=== PATIENT | male | born 1960 | race Caucasian/White ===

== ENCOUNTER 2017-11-04 05:17 | Day surgery (SDC) | payer BC, OTHER ==
[2017-10-31 11:47] LABS: BASOPHILS % (AUTO) 0.7 % (0-1); EOSINOPHILS # (AUTO) 0.2 X10'3 (0-0.9); EOSINOPHILS % (AUTO) 3.5 % (0-6); HEMATOCRIT 41.3 % (42.0-52.0); HEMOGLOBIN 14.4 g/dl (14.0-17.9); LYMPHOCYTES # (AUTO) 1.6 X10'3 (1.1-4.8); LYMPHOCYTES % (AUTO) 29.6 % (21-51); MEAN CORPUSCULAR HGB CONC 34.8 % (33.0-36.5); MEAN PLATELET VOLUME 7.5 FL (7.4-10.4); MONOCYTES # (AUTO) 0.4 X10'3 (0-0.9); MONOCYTES % (AUTO) 7.1 % (2-12); NEUTROPHILS # (AUTO) 3.2 X10'3 (1.8-7.7); NEUTROPHILS % (AUTO) 59.1 % (42-75); PLATELET COUNT 192 X10'3 (140-440); RED BLOOD COUNT 4.64 X10'6 (4.70-6.10); RED CELL DISTRIBUTION WIDTH 13.5 % (11.5-14.5); WHITE BLOOD COUNT 5.4 X10'3 (4.5-11.0)
[2017-10-31 11:55] LABS: PARTIAL THROMBOPLASTIN TIME 26 SECONDS (22-32); PROTHROMBIN TIME 10.1 SECONDS (9.0-12.0)
[2017-10-31 11:57] LABS: ALBUMIN 4.2 G/DL (3.4-5.0); ANION GAP 12 (8-16); BLOOD UREA NITROGEN 28 MG/DL (7-18); BUN/CREATININE RATIO 22.6 (5.4-32.0); CHLORIDE 110 MMOL/L (99-107); CREATININE 1.24 MG/DL (0.60-1.10); GLUCOSE 129 MG/DL (70-104); POTASSIUM 3.9 MMOL/L (3.5-5.1); SODIUM 142 MMOL/L (135-145); TOTAL CARBON DIOXIDE 20.2 MMOL/L (24-32); eGFR 60 ML/MIN
[~2017-11-04] VITALS: Ht 182.9 cm; Wt 96.2 kg
[2017-11-04] VITALS (12 sets, daily range): BP systolic 104–123; BP diastolic 60–70
[2017-11-04] MEDS ORDERED: normal saline 1000ml 1,000 ML IV SCH (05:35)
[2017-11-04] MEDS ORDERED: LORazepam 0.5 MG tablet PO PRN (05:35)
[2017-11-04] MEDS ORDERED: diphenhydrAMINE 25mg capsule PO PRN (05:35)
[2017-11-04] MEDS ORDERED: LIDOcaine/PRILOcaine 5gm cream TP PRN (05:35)
[2017-11-04] MEDS ORDERED: LIDOcaine 1%/PF (10mg/ml) 5ml vial ONE ×2 (05:59)
[2017-11-04] MEDS ORDERED: nitroGLYCERIN-Tridil 50MG/D5W 250 ML IV ONE (05:59)
[2017-11-04] MEDS ORDERED: fentaNYL/PF 50MCG/1 ML 2ML syringe ONE (05:59)
[2017-11-04] MEDS ORDERED: midazolam 2 mg/2 ml injection ONE (05:59)
[2017-11-04] MEDS ORDERED: verapamil 2.5 mg/ml inj IV ONE (05:59)
[2017-11-04] MEDS ORDERED: heparin 1,000unit/ml 10ml vial 10 ML ONE (06:00)
[2017-11-04] MEDS ORDERED: iohexol 350MG/ML 100ml bottle IV ONE (06:00)
[2017-11-04] MEDS ORDERED: OMEP20TA5 PO (06:22)
[2017-11-04] MEDS ORDERED: CELE200C PO (06:22)
[2017-11-04] MEDS ORDERED: FENO130C8 PO (06:22)
[2017-11-04] MEDS ORDERED: EZET1TAB35 PO (06:22)
[2017-11-04] MEDS ORDERED: ASPI-611 PO (06:22)
[2017-11-04] MEDS ORDERED: HYDR-565 PO (06:22)
[2017-11-04] MEDS ORDERED: ACET250T3 PO (06:22)
[2017-11-04] MEDS ORDERED: ticagrelor 90mg tablet ONE (07:02)
[2017-11-04] MEDS ORDERED: ondansetron/PF 4mg/2ml inj IV PRN (07:35)
[2017-11-04] MEDS ORDERED: proCHLORperazine 10 MG/2 ml inj IV PRN (07:35)
[2017-11-04] MEDS ORDERED: HYDROcodone/acetaminophen 10/325mg tab PO PRN (07:35)
[2017-11-04] MEDS ORDERED: OXAZEpam 15mg capsule PO PRN (07:35)
[2017-11-04] MEDS ORDERED: HYDROcodone/acetaminophen 5mg/325mg tablet PO PRN (07:35)
== END 2017-11-04 09:45 | disposition home or self-care (01) ==
LOC: SSTAY O 05:17
PROVIDERS: ATTEND Internal Medicine Interventional Cardiology
DX: I25.118 Atherosclerotic heart disease of native coronary artery with other forms of angina pectoris (principal); Z79.01 Long term (current) use of anticoagulants; Z79.899 Other long term (current) drug therapy; Z79.82 Long term (current) use of aspirin
CPT/HCPCS: 36415; 80048; 85025; 85610; 85730; 93458; 99152; 99153; A6257; A6402; A6449; C1725; C1750; C1769; C1874; C9600; J1644; J2001; J2250; J3010; J3490; J7030; Q0163; Q9967; A4620; A6258

== ENCOUNTER 2023-09-17 08:56 | Inpatient (IN) | payer OTHER ==
[~2023-09-17] VITALS: Ht 180.3 cm; Wt 88.6 kg
[~2023-09-17 08:56] MED LIST: ACET250T3 PO; ASPI-611 PO; CELE200C PO; EZET1TAB35 PO; FENO130C14 PO; HYDR-4353 PO; OMEP20TA43 PO
[2023-09-17] MEDS ORDERED: HYDROcodone/acetaminophen 5mg/325mg tablet PO ONE (09:20)
[2023-09-17] MEDS ORDERED: ketorolac trometh. 30mg/ml inj. IV ONE (09:20)
[2023-09-17 10:48] LABS: EOSINOPHILS # (AUTO) 0.2 X10'3 (0-0.9); MEAN CORPUSCULAR HEMOGLOBIN 31.2 PG (27.0-31.0); MEAN PLATELET VOLUME 7.9 FL (7.4-10.4); MONOCYTES # (AUTO) 1.1 X10'3 (0-0.9)
[2023-09-17 10:49] LABS: BASOPHILS % (AUTO) 0.4 % (0-1); EOSINOPHILS % (AUTO) 1.7 % (0-6); HEMATOCRIT 55.5 % (42.0-52.0); LYMPHOCYTES # (AUTO) 1.4 X10'3 (1.1-4.8); LYMPHOCYTES % (AUTO) 13.6 % (21-51); MEAN CORPUSCULAR HGB CONC 33.3 g/dL (33.0-36.5); MEAN CORPUSCULAR VOLUME 93.7 FL (78-98); MONOCYTES % (AUTO) 10.8 % (2-12); NEUTROPHILS # (AUTO) 7.6 X10'3 (1.8-7.7); NEUTROPHILS % (AUTO) 73.5 % (42-75); PLATELET COUNT 141 X10'3 (140-440); RED BLOOD COUNT 5.92 X10'6 (4.70-6.10); RED CELL DISTRIBUTION WIDTH 13.9 % (11.5-14.5); WHITE BLOOD COUNT 10.4 X10'3 (4.5-11.0)
[2023-09-17 10:51] LABS: BILIRUBIN,URINE MODERATE (Neg); CLARITY,URINE CLEAR (Clear); COLOR,URINE YELLOW (Yellow); GLUCOSE, URINE NEGATIVE (Neg); KETONES,URINE NEGATIVE (Neg); LEUKOCYTE ESTERASE ,URINE NEGATIVE (Neg); NITRITES, URINE NEGATIVE (Neg); OCCULT BLOOD,URINE TRACE-INTACT (Neg); PH,URINE 5.5 (4.8-8.0); PROTEIN,URINE TRACE mg/dl (Neg)
[2023-09-17 10:51] LABS: ANION GAP 17 (8-16); BLOOD UREA NITROGEN 25 MG/DL (7-18); BUN/CREATININE RATIO 10.1 (10.0-20.0); CALCIUM 9.5 MG/DL (8.5-10.1); CHLORIDE 102 MMOL/L (99-107); CREATININE 2.48 MG/DL (0.60-1.10); GLUCOSE 106 MG/DL (70-104); POTASSIUM 4.1 MMOL/L (3.5-5.1); SODIUM 135 MMOL/L (135-145); TOTAL CARBON DIOXIDE 15.7 MMOL/L (24-32); eCRCL 33 ML/MIN; eGFR 27 ML/MIN
[2023-09-17 10:54] LABS: UA COLLECTION TYPE NON-SPECIFIED
[2023-09-17 10:57] LABS: HEMOGLOBIN 18.5 g/dl (14.0-17.9)
[2023-09-17 11:00] LABS: MUCUS STRANDS MANY /LPF (Neg); SQUAMOUS EPITHELIAL CELL,UR FEW /LPF (FEW)
[2023-09-17] MEDS ORDERED: normal saline 1000ml 1,000 ML IV ONE (11:00)
[2023-09-17 11:01] LABS: WBC,URINE 0-4 /HPF (0-4)
[2023-09-17 11:02] LABS: BACTERIA,URINE FEW /HPF (Neg)
[2023-09-17] MEDS ORDERED: normal saline 1000ML IV soln IVB ONE (13:25)
[2023-09-17] MEDS ORDERED: morphine 4 MG/ML inj SYRINge IV ONE (13:30)
[2023-09-17] MEDS ORDERED: ondansetron/PF 4mg/2ml inj IV ONE (13:30)
[2023-09-17] MEDS ORDERED: FENO134C21 PO (13:57)
[2023-09-17] MEDS ORDERED: [UNRECOGNIZED DRUG - CODE] PO (13:57)
[2023-09-17] MEDS ORDERED: HYDR-3964 PO (13:57)
[2023-09-17] MEDS ORDERED: TRAZ-251 PO (13:57)
[2023-09-17] MEDS ORDERED: ondansetron/PF 4mg/2ml inj IV PRN (14:20)
[2023-09-17] MEDS ORDERED: magnesium 4gm in 100ml NS 100 ML IV PRN (14:20)
[2023-09-17] MEDS ORDERED: magnesium hydroxide 30ml (MOM) UD suspension PO PRN (14:20)
[2023-09-17] MEDS ORDERED: acetaminophen 325mg tablet PO PRN (14:20)
[2023-09-17] MEDS ORDERED: mag hydrox/Alum hydrox/simeth 30ml oral suspension PO PRN (14:20)
[2023-09-17] MEDS ORDERED: magnesium 2GM in 50ml NS 50 ML IV PRN (14:20)
[2023-09-17] MEDS ORDERED: potassium Cl 20 mEq SR tablet PO PRN ×2 (14:20)
[2023-09-17] MEDS ORDERED: potassium Cl 40MEQ/1/2NS 520ml 520 ML IV PRN (14:20)
[2023-09-17] MEDS ORDERED: CefTRIAXone/D5W-Rocephin 1gm 50 ML IV ONE (14:35)
[2023-09-17] MEDS: sodium bicarbonate (8.4%) inj. 100 MEQ in dextrose 5%-water 1,000 ML IV SCH (16:29)
[2023-09-17] MEDS: HYDROmorphone 1 mg/ml syringe IV PRN ×2 (18:33→22:34)
[2023-09-17] MEDS: K and/or MAG REPLACEMENT MC SCH (20:00)
[2023-09-17] MEDS: heparin, porcine 5000 units/ml vial SQ SCH (20:57)
[2023-09-17] MEDS: docusate sod 100mg capsule PO SCH (20:57)
[2023-09-17] MEDS: tamsulosin 0.4mg capsule PO SCH (20:57)
[2023-09-18] MEDS: sodium bicarbonate (8.4%) inj. 100 MEQ in dextrose 5%-water 1,000 ML IV SCH ×3 (01:20→14:19)
[2023-09-18] MEDS: HYDROmorphone 1 mg/ml syringe IV PRN ×5 (02:43→20:10)
[2023-09-18] MEDS: heparin, porcine 5000 units/ml vial SQ SCH ×2 (08:00→20:09)
[2023-09-18] MEDS: docusate sod 100mg capsule PO SCH ×2 (08:00→19:38)
[2023-09-18] MEDS ORDERED: CefTRIAXone/D5W-Rocephin 1gm 50 ML IV SCH (08:00)
[2023-09-18] MEDS: K and/or MAG REPLACEMENT MC SCH ×2 (08:00→19:18)
[2023-09-18 08:21] LABS: BASOPHILS % (AUTO) 0.5 % (0-1); EOSINOPHILS # (AUTO) 0.2 X10'3 (0-0.9); EOSINOPHILS % (AUTO) 2.7 % (0-6); HEMATOCRIT 48.8 % (42.0-52.0); HEMOGLOBIN 16.4 g/dl (14.0-17.9); LYMPHOCYTES # (AUTO) 1.1 X10'3 (1.1-4.8); LYMPHOCYTES % (AUTO) 13.6 % (21-51); MEAN CORPUSCULAR HEMOGLOBIN 31.4 PG (27.0-31.0); MEAN CORPUSCULAR HGB CONC 33.6 g/dL (33.0-36.5); MEAN CORPUSCULAR VOLUME 93.6 FL (78-98); MEAN PLATELET VOLUME 7.7 FL (7.4-10.4); MONOCYTES % (AUTO) 11.9 % (2-12); NEUTROPHILS # (AUTO) 5.9 X10'3 (1.8-7.7); NEUTROPHILS % (AUTO) 71.3 % (42-75); PLATELET COUNT 116 X10'3 (140-440); RED BLOOD COUNT 5.22 X10'6 (4.70-6.10); RED CELL DISTRIBUTION WIDTH 13.6 % (11.5-14.5); WHITE BLOOD COUNT 8.2 X10'3 (4.5-11.0)
[2023-09-18 08:35] LABS: ALANINE AMINOTRANSFERASE 39 U/L (12-78); ALBUMIN 3.3 G/DL (3.4-5.0); ALBUMIN/GLOBULIN RATIO 0.8 (1.1-1.5); ALKALINE PHOSPHATASE 67 IU/L (46-116); ANION GAP 8 (8-16); ASPARTATE AMINO TRANSFERASE 21 U/L (10-37); BILIRUBIN,TOTAL 0.7 MG/DL (0.1-1.0); BLOOD UREA NITROGEN 21 MG/DL (7-18); BUN/CREATININE RATIO 9.5 (10.0-20.0); CHLORIDE 104 MMOL/L (99-107); CREATININE 2.22 MG/DL (0.60-1.10); GLUCOSE 103 MG/DL (70-104); MAGNESIUM 1.9 MG/DL (1.5-2.4); POTASSIUM 3.9 MMOL/L (3.5-5.1); SODIUM 135 MMOL/L (135-145); TOTAL PROTEIN 7.4 G/DL (6.4-8.2); eCRCL 37 ML/MIN; eGFR 30 ML/MIN
[2023-09-18] MEDS: fenofibrate 145mg tablet PO SCH (08:40)
[2023-09-18] MEDS ORDERED: acetaminophen 325mg tablet PO PRN (08:40)
[2023-09-18] MEDS: aspirin 81mg, enteric-coated 1 TAB TABLET.DR PO SCH (08:41)
[2023-09-18] MEDS: pantoprazole 40mg Tablet.DR PO SCH (08:41)
[2023-09-18] MEDS: atorvastatin 10mg tablet PO SCH (08:41)
[2023-09-18] MEDS: HYDROmorphone inj. 0.5 MG/0.5 ML DISP.SYRIN IV PRN ×3 (09:02→18:19)
[2023-09-18] MEDS: normal saline 1000ml 1,000 ML IV SCH (19:42)
[2023-09-18] MEDS: tamsulosin 0.4mg capsule PO SCH (20:07)
[2023-09-19] VITALS (16 sets, daily range): BP systolic 122–144; BP diastolic 63–85; PULSE 70–84; RESP 13–20; TEMP 97.1–98.8; O2SAT 91–100
[2023-09-19] MEDS: HYDROmorphone 1 mg/ml syringe IV PRN ×2 (00:12→04:05)
[2023-09-19] MEDS: tamsulosin 0.4mg capsule PO SCH (01:49)
[2023-09-19] MEDS: normal saline 1000ml 1,000 ML IV SCH (06:01)
[2023-09-19 06:22] LABS: BASOPHILS # (AUTO) 0.1 X10'3 (0-0.2); BASOPHILS % (AUTO) 0.8 % (0-1); EOSINOPHILS # (AUTO) 0.2 X10'3 (0-0.9); HEMATOCRIT 49.4 % (42.0-52.0); HEMOGLOBIN 16.9 g/dl (14.0-17.9); LYMPHOCYTES # (AUTO) 1.3 X10'3 (1.1-4.8); LYMPHOCYTES % (AUTO) 18.7 % (21-51); MEAN CORPUSCULAR HEMOGLOBIN 31.6 PG (27.0-31.0); MEAN CORPUSCULAR HGB CONC 34.3 g/dL (33.0-36.5); MEAN CORPUSCULAR VOLUME 92.2 FL (78-98); MEAN PLATELET VOLUME 7.7 FL (7.4-10.4); MONOCYTES # (AUTO) 0.7 X10'3 (0-0.9); MONOCYTES % (AUTO) 10.1 % (2-12); NEUTROPHILS # (AUTO) 4.8 X10'3 (1.8-7.7); NEUTROPHILS % (AUTO) 67.4 % (42-75); PLATELET COUNT 146 X10'3 (140-440); RED BLOOD COUNT 5.35 X10'6 (4.70-6.10); RED CELL DISTRIBUTION WIDTH 13.6 % (11.5-14.5); WHITE BLOOD COUNT 7.1 X10'3 (4.5-11.0)
[2023-09-19 06:42] LABS: ALANINE AMINOTRANSFERASE 48 U/L (12-78); ALBUMIN 3.3 G/DL (3.4-5.0); ALBUMIN/GLOBULIN RATIO 0.7 (1.1-1.5); ALKALINE PHOSPHATASE 73 IU/L (46-116); ANION GAP 12 (8-16); ASPARTATE AMINO TRANSFERASE 27 U/L (10-37); BILIRUBIN,TOTAL 0.6 MG/DL (0.1-1.0); BLOOD UREA NITROGEN 21 MG/DL (7-18); BUN/CREATININE RATIO 12.4 (10.0-20.0); CALCIUM 9.2 MG/DL (8.5-10.1); CHLORIDE 103 MMOL/L (99-107); CREATININE 1.69 MG/DL (0.60-1.10); GLUCOSE 108 MG/DL (70-104); POTASSIUM 3.7 MMOL/L (3.5-5.1); SODIUM 138 MMOL/L (135-145); TOTAL CARBON DIOXIDE 22.8 MMOL/L (24-32); TOTAL PROTEIN 7.8 G/DL (6.4-8.2); eCRCL 48 ML/MIN; eGFR 41 ML/MIN
[2023-09-19] MEDS ORDERED: iohexol 300 MG/1 ML 50ml polymer ONE (06:57)
[2023-09-19] MEDS ORDERED: sevoflurane 250ml liquid IH ONE (07:16)
[2023-09-19] MEDS ORDERED: fentaNYL/PF 50MCG/1 ML 2ML syringe ONE (07:23)
[2023-09-19] MEDS ORDERED: iohexol 300 MG/1 ML 50ml polymer ICATH ONE (07:44)
[2023-09-19] MEDS ORDERED: LIDOcaine 2% (20mg/ml) 5ml vial ONE (07:45)
[2023-09-19] MEDS ORDERED: midazolam 1 mg/ML 2ml injection ONE (07:45)
[2023-09-19] MEDS ORDERED: propofol inj 20 ML IV ONE (07:45)
[2023-09-19] MEDS ORDERED: dexamethasone sod phosphate 4mg/ml inj. ONE (07:45)
[2023-09-19] MEDS ORDERED: ondansetron/PF 4mg/2ml inj ONE (07:45)
[2023-09-19] MEDS ORDERED: proCHLORperazine 10 MG/2 ml inj IV PRN (08:00)
[2023-09-19] MEDS ORDERED: acetaminophen 1,000mg/100ml IV 100 ML IV ONE (08:00)
[2023-09-19] MEDS ORDERED: hydrALAZINE 20mg/ml inj. IV PRN (08:00)
[2023-09-19] MEDS ORDERED: ringers solution, lacted 1,000 ML IV SCH (08:00)
[2023-09-19] MEDS ORDERED: meperidine/PF 25mg/ml syringe IV PRN ×2 (08:00)
[2023-09-19] MEDS: docusate sod 100mg capsule PO SCH (08:00)
[2023-09-19] MEDS: fenofibrate 145mg tablet PO SCH (08:00)
[2023-09-19] MEDS ORDERED: labetalol 20mg/4ml (5mg/ml) syringe IV PRN (08:00)
[2023-09-19] MEDS: atorvastatin 10mg tablet PO SCH (08:00)
[2023-09-19] MEDS ORDERED: morphine 4 MG/ML inj SYRINge IV PRN (08:00)
[2023-09-19] MEDS: heparin, porcine 5000 units/ml vial SQ SCH (08:00)
[2023-09-19] MEDS: pantoprazole 40mg Tablet.DR PO SCH (08:00)
[2023-09-19] MEDS ORDERED: ondansetron/PF 4mg/2ml inj IV PRN (08:00)
[2023-09-19] MEDS ORDERED: morphine 2 MG/ML inj. syringe IV PRN (08:00)
[2023-09-19] MEDS: aspirin 81mg, enteric-coated 1 TAB TABLET.DR PO SCH (08:00)
[2023-09-19] MEDS: meperidine/PF 25mg/ml syringe IV PRN ×2 (08:29→08:43)
[2023-09-19] MEDS ORDERED: PHEN-716 PO (11:30)
[2023-09-19] MEDS ORDERED: CEPH-585 PO (11:30)
== END 2023-09-19 12:15 | disposition home or self-care (01) | DRG 660 ==
LOC: ER 08:56 → ED HOLD 14:33 → EDBEDREQ 09-18 21:36 → ED HOLD 09-18 22:07 → ORTHO 4S 09-19 00:10
PROVIDERS: ADMIT Family Medicine; ATTEND Family Medicine
PROC: BT141ZZ Fluoroscopy of Kidneys, Ureters and Bladder using Low Osmolar Contrast (ICD-10-PCS; 2023-09-19)
PROC: 0T788DZ Dilation of Bilateral Ureters with Intraluminal Device, Via Natural or Artificial Opening Endoscopic (ICD-10-PCS; principal; 2023-09-19 07:16)
DX: N13.2 Hydronephrosis with renal and ureteral calculous obstruction (principal); E87.20 Acidosis, unspecified; N13.8 Other obstructive and reflux uropathy; E86.0 Dehydration; G89.29 Other chronic pain; M54.9 Dorsalgia, unspecified; E78.5 Hyperlipidemia, unspecified; M85.80 Other specified disorders of bone density and structure, unspecified site; N40.1 Benign prostatic hyperplasia with lower urinary tract symptoms; I25.10 Atherosclerotic heart disease of native coronary artery without angina pectoris; N17.9 Acute kidney failure, unspecified; Z79.82 Long term (current) use of aspirin; Z79.899 Other long term (current) drug therapy; Z87.442 Personal history of urinary calculi
CPT/HCPCS: 99285; Z7506; 36415; 71045; 74176; 74420; 76000; 80048; 80053; 81001; 83735; 85025; 93005; A4618; A6258; C1758; C1769; C2617; G0378; J0131; J0696; J1100; J1170; J1644; J1885; J2175; J2250; J2270; J2405; J2704; J3010; J3490; J7030; J7070; Q9967

== ENCOUNTER 2024-01-15 08:21 | Inpatient (IN) | payer OTHER ==
[~2024-01-15] VITALS: Ht 180.3 cm; Wt 96.2 kg
[2024-01-15] MEDS: dextrose 5%-1/2 normal saline 1,000 ML IV SCH (00:49)
[~2024-01-15 08:21] MED LIST changes: -ACET250T3 PO; -CELE200C PO; +CEPH-585 PO; -EZET1TAB35 PO; -FENO130C14 PO; +FENO134C21 PO; +HYDR-3964 PO; -HYDR-4353 PO; +PHEN-716 PO; +TRAZ-251 PO; +[UNRECOGNIZED DRUG - CODE] PO
[2024-01-15] MEDS: HYDROmorphone inj. 0.5 MG/0.5 ML DISP.SYRIN IV ONE (09:33)
[2024-01-15] MEDS: ondansetron/PF 4mg/2ml inj IM ONE (09:34)
[2024-01-15 09:41] LABS: BASOPHILS % (AUTO) 0.4 % (0-1); EOSINOPHILS # (AUTO) 0.1 X10'3 (0-0.9); EOSINOPHILS % (AUTO) 1.4 % (0-6); HEMATOCRIT 51.8 % (42.0-52.0); HEMOGLOBIN 17.6 g/dl (14.0-17.9); LYMPHOCYTES # (AUTO) 1.2 X10'3 (1.1-4.8); LYMPHOCYTES % (AUTO) 11.7 % (21-51); MEAN CORPUSCULAR HEMOGLOBIN 32.4 PG (27.0-31.0); MEAN CORPUSCULAR HGB CONC 34.1 g/dL (33.0-36.5); MEAN CORPUSCULAR VOLUME 95.1 FL (78-98); MEAN PLATELET VOLUME 7.4 FL (7.4-10.4); MONOCYTES # (AUTO) 0.7 X10'3 (0-0.9); MONOCYTES % (AUTO) 6.9 % (2-12); NEUTROPHILS # (AUTO) 7.8 X10'3 (1.8-7.7); NEUTROPHILS % (AUTO) 79.6 % (42-75); PLATELET COUNT 137 X10'3 (140-440); RED BLOOD COUNT 5.45 X10'6 (4.70-6.10); RED CELL DISTRIBUTION WIDTH 13.9 % (11.5-14.5); WHITE BLOOD COUNT 9.9 X10'3 (4.5-11.0)
[2024-01-15] MEDS: ondansetron/PF 4mg/2ml inj IV ONE (09:45)
[2024-01-15] MEDS: HYDROmorphone inj. 0.5 MG/0.5 ML DISP.SYRIN IV PRN (09:52)
[2024-01-15 10:16] LABS: ALANINE AMINOTRANSFERASE 86 U/L (12-78); ALBUMIN 3.7 G/DL (3.4-5.0); ALKALINE PHOSPHATASE 78 IU/L (46-116); ANION GAP 10 (8-16); ASPARTATE AMINO TRANSFERASE 45 U/L (10-37); BILIRUBIN,TOTAL 0.5 MG/DL (0.1-1.0); BLOOD UREA NITROGEN 15 MG/DL (7-18); BUN/CREATININE RATIO 12.5 (10.0-20.0); CALCIUM 9.2 MG/DL (8.5-10.1); CHLORIDE 103 MMOL/L (99-107); GLUCOSE 121 MG/DL (70-104); SODIUM 135 MMOL/L (135-145); TOTAL CARBON DIOXIDE 22.4 MMOL/L (24-32); TOTAL PROTEIN 7.4 G/DL (6.4-8.2); eCRCL 67 ML/MIN; eGFR 61 ML/MIN
[2024-01-15 10:25] LABS: LIPASE > 375 U/L (16-77)
[2024-01-15 11:30] LABS: BILIRUBIN,URINE NEGATIVE (Neg); CLARITY,URINE SLIGHTLY CLOUDY (Clear); COLOR,URINE YELLOW (Yellow); GLUCOSE, URINE NEGATIVE (Neg); KETONES,URINE NEGATIVE (Neg); LEUKOCYTE ESTERASE ,URINE NEGATIVE (Neg); NITRITES, URINE NEGATIVE (Neg); OCCULT BLOOD,URINE NEGATIVE (Neg); PROTEIN,URINE NEGATIVE (Neg); UROBILINOGEN,URINE 0.2 E.U/dL (0.2-1.0)
[2024-01-15 11:48] LABS: UA COLLECTION TYPE CLN CATCH MIDSTREAM
[2024-01-15 11:50] LABS: BACTERIA,URINE NONE SEEN /HPF (Neg); RBC,URINE NONE SEEN /HPF (0-2); SQUAMOUS EPITHELIAL CELL,UR NONE SEEN /LPF (FEW); WBC,URINE NONE SEEN /HPF (0-4)
[2024-01-15] MEDS ORDERED: acetaminophen 325mg tablet PO PRN (12:30)
[2024-01-15] MEDS ORDERED: magnesium 4gm in 100ml NS 100 ML IV PRN (12:30)
[2024-01-15] MEDS ORDERED: magnesium Cl slow-release 64mg tablet PO PRN (12:30)
[2024-01-15] MEDS ORDERED: HYDROmorphone/PF 0.2 MG/ML SYRINGE IV PRN ×2 (12:30→13:25)
[2024-01-15] MEDS ORDERED: HYDROmorphone inj. 0.5 MG/0.5 ML DISP.SYRIN IV PRN (12:30)
[2024-01-15] MEDS ORDERED: diphenhydrAMINE 25mg capsule PO PRN (12:30)
[2024-01-15] MEDS ORDERED: potassium Cl 40MEQ/1/2NS 520ml 520 ML IV PRN (12:30)
[2024-01-15] MEDS ORDERED: potassium Cl 20 mEq SR tablet PO PRN ×2 (12:30)
[2024-01-15] MEDS ORDERED: magnesium 2GM in 50ml NS 50 ML IV PRN (12:30)
[2024-01-15] MEDS ORDERED: mag hydrox/Alum hydrox/simeth 30ml oral suspension PO PRN (12:30)
[2024-01-15] MEDS ORDERED: magnesium hydroxide 30ml (MOM) UD suspension PO PRN (12:30)
[2024-01-15] MEDS: HYDROmorphone 1 mg/ml syringe IV ONE (13:13)
[2024-01-15] MEDS: ondansetron/PF 4mg/2ml inj IV PRN (13:14)
[2024-01-15 14:07] LABS: TRIGLYCERIDES 261 MG/DL (20-135)
[2024-01-15] MEDS: morphine 4 MG/ML inj SYRINge IV PRN (16:18)
[2024-01-15 17:51] VITALS: BP 152/100; PULSE 114; RESP 20; TEMP 98.7; O2SAT 93
[2024-01-15] MEDS: LIDOcaine 5% patch TP ONE (18:02)
[2024-01-15] MEDS: HYDROmorphone 1 mg/ml syringe IV PRN (18:05)
[2024-01-15 19:00] VITALS: RESP 18; O2SAT 93
[2024-01-15] MEDS: K and/or MAG REPLACEMENT MC SCH (20:00)
[2024-01-15] MEDS: docusate sod 100mg capsule PO SCH (20:40)
[2024-01-15] MEDS: HYDROcodone/acetaminophen 10/325mg tab PO PRN (20:41)
[2024-01-15 22:00] VITALS: BP 150/65; PULSE 75; RESP 14; TEMP 98.8; O2SAT 94
[2024-01-15] MEDS: traZODone 50mg tablet PO PRN (22:47)
[2024-01-16 05:59] LABS: BASOPHILS % (AUTO) 0.1 % (0-1); EOSINOPHILS % (AUTO) 0 % (0-6); HEMATOCRIT 56.1 % (42.0-52.0); LYMPHOCYTES # (AUTO) 0.7 X10'3 (1.1-4.8); LYMPHOCYTES % (AUTO) 3.5 % (21-51); MEAN CORPUSCULAR HEMOGLOBIN 32.4 PG (27.0-31.0); MEAN CORPUSCULAR HGB CONC 33.8 g/dL (33.0-36.5); MEAN CORPUSCULAR VOLUME 95.7 FL (78-98); MEAN PLATELET VOLUME 7.6 FL (7.4-10.4); MONOCYTES % (AUTO) 5.2 % (2-12); NEUTROPHILS % (AUTO) 91.2 % (42-75); PLATELET COUNT 157 X10'3 (140-440); RED BLOOD COUNT 5.86 X10'6 (4.70-6.10); WHITE BLOOD COUNT 19.7 X10'3 (4.5-11.0)
[2024-01-16 06:00] VITALS: BP 121/74; PULSE 80; RESP 16; TEMP 98.6; O2SAT 96
[2024-01-16 06:27] LABS: ALANINE AMINOTRANSFERASE 60 U/L (12-78); ALBUMIN 3.3 G/DL (3.4-5.0); ALBUMIN/GLOBULIN RATIO 0.8 (1.1-1.5); ALKALINE PHOSPHATASE 73 IU/L (46-116); ANION GAP 11 (8-16); ASPARTATE AMINO TRANSFERASE 32 U/L (10-37); BILIRUBIN,TOTAL 1.3 MG/DL (0.1-1.0); BLOOD UREA NITROGEN 16 MG/DL (7-18); BUN/CREATININE RATIO 12.7 (10.0-20.0); CALCIUM 9.1 MG/DL (8.5-10.1); CHLORIDE 98 MMOL/L (99-107); CREATININE 1.26 MG/DL (0.60-1.10); GLUCOSE 179 MG/DL (70-104); POTASSIUM 4.2 MMOL/L (3.5-5.1); SODIUM 132 MMOL/L (135-145); TOTAL CARBON DIOXIDE 23.2 MMOL/L (24-32); TOTAL PROTEIN 7.6 G/DL (6.4-8.2); eCRCL 64 ML/MIN; eGFR 58 ML/MIN
[2024-01-16 07:02] LABS: LIPASE > 375 U/L (16-77)
[2024-01-16] MEDS: FENOFIBRATE MICRONIZED 134 MG PO SCH (08:00)
[2024-01-16] MEDS: enoxaparin 40mg/0.4ml syringe SUBCUT SCH (08:59)
[2024-01-16 09:00] VITALS: RESP 16
[2024-01-16] MEDS: morphine 2 MG/ML inj. syringe IV PRN (09:00)
[2024-01-16] MEDS: ringers solution, lacted 1,000 ML IV SCH (09:09)
[2024-01-16 10:00] VITALS: BP 154/91; PULSE 114; RESP 20; TEMP 99.8; O2SAT 98
[2024-01-16] MEDS ORDERED: naloxone 0.4 mg/ml inj IV PRN (10:30)
[2024-01-16] MEDS: HYDROmorph/NS 0.2 mg/ml PCA 100 ML IV SCH (11:00)
[2024-01-16] MEDS: normal saline 1000ml 1,000 ML IV ONE (11:03)
[2024-01-16] MEDS: LIDOcaine 5% patch TP SCH (11:38)
[2024-01-16 14:25] LABS: BASOPHILS % (AUTO) 0.3 % (0-1); EOSINOPHILS % (AUTO) 0.1 % (0-6); HEMATOCRIT 52.1 % (42.0-52.0); LYMPHOCYTES # (AUTO) 0.6 X10'3 (1.1-4.8); LYMPHOCYTES % (AUTO) 3.1 % (21-51); MEAN CORPUSCULAR HEMOGLOBIN 32.5 PG (27.0-31.0); MEAN CORPUSCULAR HGB CONC 34.6 g/dL (33.0-36.5); MEAN CORPUSCULAR VOLUME 94.1 FL (78-98); MEAN PLATELET VOLUME 7.3 FL (7.4-10.4); NEUTROPHILS # (AUTO) 17.6 X10'3 (1.8-7.7); NEUTROPHILS % (AUTO) 91.5 % (42-75); PLATELET COUNT 118 X10'3 (140-440); RED BLOOD COUNT 5.54 X10'6 (4.70-6.10); RED CELL DISTRIBUTION WIDTH 13.8 % (11.5-14.5); WHITE BLOOD COUNT 19.2 X10'3 (4.5-11.0)
[2024-01-16] MEDS: HYDROmorphone 1 mg/ml syringe IV ONE (16:03)
[2024-01-16 18:00] VITALS: BP 122/93; PULSE 115; RESP 18; TEMP 98.3; O2SAT 92
[2024-01-16 20:00] VITALS: RESP 18; O2SAT 94
[2024-01-16 22:00] VITALS: BP 151/90; PULSE 106; RESP 18; TEMP 98.9; O2SAT 92
[2024-01-16] MEDS: traZODone 50mg tablet PO PRN (22:22)
[2024-01-17 06:00] VITALS: BP 152/68; PULSE 86; RESP 18; TEMP 99.5; O2SAT 95
[2024-01-17 06:05] LABS: BASOPHILS % (AUTO) 0.3 % (0-1); EOSINOPHILS % (AUTO) 0 % (0-6); HEMATOCRIT 48.8 % (42.0-52.0); HEMOGLOBIN 16.8 g/dl (14.0-17.9); LYMPHOCYTES # (AUTO) 0.7 X10'3 (1.1-4.8); MEAN CORPUSCULAR HEMOGLOBIN 32.5 PG (27.0-31.0); MEAN CORPUSCULAR HGB CONC 34.4 g/dL (33.0-36.5); MEAN CORPUSCULAR VOLUME 94.6 FL (78-98); MEAN PLATELET VOLUME 7.9 FL (7.4-10.4); MONOCYTES # (AUTO) 1.1 X10'3 (0-0.9); MONOCYTES % (AUTO) 6.4 % (2-12); NEUTROPHILS # (AUTO) 15.4 X10'3 (1.8-7.7); NEUTROPHILS % (AUTO) 89.3 % (42-75); PLATELET COUNT 107 X10'3 (140-440); RED BLOOD COUNT 5.16 X10'6 (4.70-6.10); RED CELL DISTRIBUTION WIDTH 13.8 % (11.5-14.5); WHITE BLOOD COUNT 17.2 X10'3 (4.5-11.0)
[2024-01-17 06:15] LABS: ALANINE AMINOTRANSFERASE 32 U/L (12-78); ALBUMIN 2.4 G/DL (3.4-5.0); ALBUMIN/GLOBULIN RATIO 0.6 (1.1-1.5); ALKALINE PHOSPHATASE 64 IU/L (46-116); ANION GAP 9 (8-16); ASPARTATE AMINO TRANSFERASE 24 U/L (10-37); BILIRUBIN,TOTAL 1.3 MG/DL (0.1-1.0); BLOOD UREA NITROGEN 17 MG/DL (7-18); BUN/CREATININE RATIO 17.2 (10.0-20.0); CALCIUM 8.5 MG/DL (8.5-10.1); CHLORIDE 99 MMOL/L (99-107); CREATININE 0.99 MG/DL (0.60-1.10); GLUCOSE 126 MG/DL (70-104); LIPASE 104 U/L (16-77); MAGNESIUM 1.9 MG/DL (1.5-2.4); POTASSIUM 4.2 MMOL/L (3.5-5.1); SODIUM 132 MMOL/L (135-145); TOTAL CARBON DIOXIDE 24.4 MMOL/L (24-32); TOTAL PROTEIN 6.5 G/DL (6.4-8.2); eCRCL 81 ML/MIN; eGFR 76 ML/MIN
[2024-01-17 08:00] VITALS: RESP 16; O2SAT 93
[2024-01-17 10:00] VITALS: BP 162/79; PULSE 103; RESP 18; TEMP 98.3; O2SAT 95
[2024-01-17 18:00] VITALS: BP 163/72; PULSE 109; RESP 18; TEMP 98.7; O2SAT 93
[2024-01-17 20:00] VITALS: RESP 18; O2SAT 94
[2024-01-17 22:00] VITALS: BP 152/67; PULSE 96; RESP 18; TEMP 100.3; O2SAT 93
[2024-01-18 05:49] LABS: BASOPHILS % (AUTO) 0.2 % (0-1); EOSINOPHILS % (AUTO) 0.2 % (0-6); HEMATOCRIT 49.2 % (42.0-52.0); HEMOGLOBIN 16.6 g/dl (14.0-17.9); LYMPHOCYTES # (AUTO) 0.6 X10'3 (1.1-4.8); LYMPHOCYTES % (AUTO) 4.4 % (21-51); MEAN CORPUSCULAR HEMOGLOBIN 32.3 PG (27.0-31.0); MEAN CORPUSCULAR HGB CONC 33.8 g/dL (33.0-36.5); MEAN CORPUSCULAR VOLUME 95.4 FL (78-98); MEAN PLATELET VOLUME 8.2 FL (7.4-10.4); MONOCYTES # (AUTO) 1.1 X10'3 (0-0.9); MONOCYTES % (AUTO) 7.9 % (2-12); NEUTROPHILS # (AUTO) 11.9 X10'3 (1.8-7.7); NEUTROPHILS % (AUTO) 87.3 % (42-75); PLATELET COUNT 129 X10'3 (140-440); RED BLOOD COUNT 5.16 X10'6 (4.70-6.10); RED CELL DISTRIBUTION WIDTH 13.9 % (11.5-14.5); WHITE BLOOD COUNT 13.7 X10'3 (4.5-11.0)
[2024-01-18 06:00] LABS: ALANINE AMINOTRANSFERASE 34 U/L (12-78); ALBUMIN 2.6 G/DL (3.4-5.0); ALBUMIN/GLOBULIN RATIO 0.5 (1.1-1.5); ALKALINE PHOSPHATASE 73 IU/L (46-116); ANION GAP 5 (8-16); ASPARTATE AMINO TRANSFERASE 32 U/L (10-37); BILIRUBIN,TOTAL 1.6 MG/DL (0.1-1.0); BLOOD UREA NITROGEN 16 MG/DL (7-18); BUN/CREATININE RATIO 17.4 (10.0-20.0); CALCIUM 9.2 MG/DL (8.5-10.1); CHLORIDE 98 MMOL/L (99-107); CREATININE 0.92 MG/DL (0.60-1.10); GLUCOSE 118 MG/DL (70-104); LIPASE 44 U/L (16-77); MAGNESIUM 2.1 MG/DL (1.5-2.4); POTASSIUM 4.1 MMOL/L (3.5-5.1); SODIUM 134 MMOL/L (135-145); TOTAL CARBON DIOXIDE 30.8 MMOL/L (24-32); TOTAL PROTEIN 7.4 G/DL (6.4-8.2); eCRCL 88 ML/MIN; eGFR 83 ML/MIN
[2024-01-18 08:00] VITALS: BP 158/80; PULSE 90; RESP 18; TEMP 98.3; O2SAT 91
[2024-01-18] MEDS: CefTRIAXone/D5W-Rocephin 1gm 50 ML IV SCH (13:44)
[2024-01-18 18:00] VITALS: BP 146/74; PULSE 89; RESP 20; TEMP 98.4; O2SAT 92
[2024-01-18 20:00] VITALS: RESP 20; O2SAT 96
[2024-01-18 22:00] VITALS: BP 124/71; PULSE 89; RESP 20; TEMP 98.1; O2SAT 93
[2024-01-19 05:00] VITALS: BP 158/80; PULSE 56; RESP 20; TEMP 99; O2SAT 91
[2024-01-19] MEDS: PCA WASTE DOCUMENTATION 1 MG ML MC SCH (05:06)
[2024-01-19 06:11] LABS: BASOPHILS % (AUTO) 0.4 % (0-1); EOSINOPHILS # (AUTO) 0.1 X10'3 (0-0.9); EOSINOPHILS % (AUTO) 0.7 % (0-6); HEMATOCRIT 45.4 % (42.0-52.0); HEMOGLOBIN 15.6 g/dl (14.0-17.9); LYMPHOCYTES # (AUTO) 0.8 X10'3 (1.1-4.8); LYMPHOCYTES % (AUTO) 5.9 % (21-51); MEAN CORPUSCULAR HEMOGLOBIN 32.4 PG (27.0-31.0); MEAN CORPUSCULAR HGB CONC 34.4 g/dL (33.0-36.5); MEAN CORPUSCULAR VOLUME 94.1 FL (78-98); MEAN PLATELET VOLUME 8.1 FL (7.4-10.4); MONOCYTES # (AUTO) 1.2 X10'3 (0-0.9); MONOCYTES % (AUTO) 9.4 % (2-12); NEUTROPHILS # (AUTO) 10.6 X10'3 (1.8-7.7); NEUTROPHILS % (AUTO) 83.6 % (42-75); PLATELET COUNT 146 X10'3 (140-440); RED BLOOD COUNT 4.82 X10'6 (4.70-6.10); RED CELL DISTRIBUTION WIDTH 13.6 % (11.5-14.5); WHITE BLOOD COUNT 12.7 X10'3 (4.5-11.0)
[2024-01-19 06:28] LABS: ALANINE AMINOTRANSFERASE 30 U/L (12-78); ALBUMIN 2.3 G/DL (3.4-5.0); ALBUMIN/GLOBULIN RATIO 0.5 (1.1-1.5); ALKALINE PHOSPHATASE 87 IU/L (46-116); ANION GAP 6 (8-16); ASPARTATE AMINO TRANSFERASE 26 U/L (10-37); BILIRUBIN,TOTAL 1.8 MG/DL (0.1-1.0); BLOOD UREA NITROGEN 16 MG/DL (7-18); BUN/CREATININE RATIO 19.3 (10.0-20.0); CALCIUM 8.8 MG/DL (8.5-10.1); CHLORIDE 100 MMOL/L (99-107); CREATININE 0.83 MG/DL (0.60-1.10); GLUCOSE 114 MG/DL (70-104); LIPASE 38 U/L (16-77); MAGNESIUM 2.1 MG/DL (1.5-2.4); POTASSIUM 3.7 MMOL/L (3.5-5.1); SODIUM 134 MMOL/L (135-145); TOTAL CARBON DIOXIDE 28.1 MMOL/L (24-32); TOTAL PROTEIN 6.8 G/DL (6.4-8.2); eCRCL 97 ML/MIN; eGFR > 90 ML/MIN
[2024-01-19] MEDS ORDERED: morphine 2 MG/ML inj. syringe IV PRN (07:45)
[2024-01-19] MEDS: lactulose 20gm/30ml cup PO ONE (09:29)
[2024-01-19] MEDS: morphine 2 MG/ML inj. syringe IV PRN (11:30)
[2024-01-19 12:00] VITALS: BP 159/86; PULSE 84; RESP 16; TEMP 99.6; O2SAT 91
[2024-01-19] MEDS: HYDROcodone/acetaminophen 5mg/325mg tablet PO PRN (16:21)
[2024-01-19 18:00] VITALS: BP 150/67; PULSE 79; RESP 16; TEMP 97.9; O2SAT 97
[2024-01-19] MEDS ORDERED: hydrALAZINE 20mg/ml inj. IV PRN (19:35)
[2024-01-19] MEDS ORDERED: cloNIDine 0.1 mg tablet PO PRN (19:35)
[2024-01-19] MEDS: docusate sod 100mg capsule PO SCH (20:17)
[2024-01-19 20:30] VITALS: RESP 16
[2024-01-19 22:00] VITALS: BP 145/71; PULSE 61; RESP 16; TEMP 98.1; O2SAT 95
[2024-01-20 05:00] VITALS: BP 138/59; PULSE 67; RESP 16; TEMP 98.9; O2SAT 93
[2024-01-20 05:56] LABS: BASOPHILS % (AUTO) 0.4 % (0-1); EOSINOPHILS # (AUTO) 0.1 X10'3 (0-0.9); EOSINOPHILS % (AUTO) 0.8 % (0-6); HEMATOCRIT 44.5 % (42.0-52.0); HEMOGLOBIN 15.4 g/dl (14.0-17.9); LYMPHOCYTES # (AUTO) 0.7 X10'3 (1.1-4.8); MEAN CORPUSCULAR HEMOGLOBIN 32.4 PG (27.0-31.0); MEAN CORPUSCULAR HGB CONC 34.6 g/dL (33.0-36.5); MEAN CORPUSCULAR VOLUME 93.5 FL (78-98); MEAN PLATELET VOLUME 7.9 FL (7.4-10.4); MONOCYTES # (AUTO) 0.8 X10'3 (0-0.9); MONOCYTES % (AUTO) 8.3 % (2-12); NEUTROPHILS # (AUTO) 8.3 X10'3 (1.8-7.7); NEUTROPHILS % (AUTO) 83.5 % (42-75); PLATELET COUNT 161 X10'3 (140-440); RED BLOOD COUNT 4.76 X10'6 (4.70-6.10); RED CELL DISTRIBUTION WIDTH 13.8 % (11.5-14.5)
[2024-01-20 06:22] LABS: ALANINE AMINOTRANSFERASE 64 U/L (12-78); ALBUMIN 2.2 G/DL (3.4-5.0); ALBUMIN/GLOBULIN RATIO 0.5 (1.1-1.5); ALKALINE PHOSPHATASE 107 IU/L (46-116); ANION GAP 11 (8-16); ASPARTATE AMINO TRANSFERASE 55 U/L (10-37); BILIRUBIN,TOTAL 1.9 MG/DL (0.1-1.0); BLOOD UREA NITROGEN 18 MG/DL (7-18); BUN/CREATININE RATIO 21.4 (10.0-20.0); CALCIUM 8.9 MG/DL (8.5-10.1); CHLORIDE 102 MMOL/L (99-107); CREATININE 0.84 MG/DL (0.60-1.10); GLUCOSE 115 MG/DL (70-104); LIPASE 57 U/L (16-77); POTASSIUM 3.5 MMOL/L (3.5-5.1); SODIUM 137 MMOL/L (135-145); TOTAL CARBON DIOXIDE 24.4 MMOL/L (24-32); TOTAL PROTEIN 6.5 G/DL (6.4-8.2); eCRCL 96 ML/MIN; eGFR > 90 ML/MIN
[2024-01-20 10:00] VITALS: BP 151/70; PULSE 53; RESP 16; TEMP 99; O2SAT 95
[2024-01-20 10:59] VITALS: RESP 16
[2024-01-20] MEDS ORDERED: LISI10TA27 PO (12:18)
== END 2024-01-20 14:15 | disposition home or self-care (01) | DRG 438 ==
LOC: ER 08:21 → ED HOLD 12:39 → SUR 3N 16:30
PROVIDERS: ADMIT Internal Medicine; ATTEND Internal Medicine
DX: K85.90 Acute pancreatitis without necrosis or infection, unspecified (principal); J18.9 Pneumonia, unspecified organism; S36.299A Other injury of unspecified part of pancreas, initial encounter; I25.10 Atherosclerotic heart disease of native coronary artery without angina pectoris; K86.89 Other specified diseases of pancreas; K76.0 Fatty (change of) liver, not elsewhere classified; K21.9 Gastro-esophageal reflux disease without esophagitis; N20.0 Calculus of kidney; D72.829 Elevated white blood cell count, unspecified; E78.5 Hyperlipidemia, unspecified; G89.29 Other chronic pain; M85.80 Other specified disorders of bone density and structure, unspecified site; W01.0XXA Fall on same level from slipping, tripping and stumbling without subsequent striking against object, initial encounter; Y93.01 Activity, walking, marching and hiking; Z90.49 Acquired absence of other specified parts of digestive tract; Y92.89 Other specified places as the place of occurrence of the external cause; Y99.8 Other external cause status; Z98.61 Coronary angioplasty status; Z87.442 Personal history of urinary calculi; Z79.82 Long term (current) use of aspirin; Z79.899 Other long term (current) drug therapy
CPT/HCPCS: 36415; 71046; 71250; 74176; 80053; 81001; 83690; 83735; 84132; 84145; 84478; 85025; 87081; 97116; 97161; 97530; 99285; A4615; G0378; J0696; J1170; J1650; J2270; J2405; J7030; J7120

== ENCOUNTER 2025-07-08 13:33 | Emergency (ER) | payer OTHER ==
[~2025-07-08] VITALS: Ht 180.3 cm; Wt 87.2 kg
[~2025-07-08 13:33] MED LIST changes: -CEPH-585 PO; +LISI10TA27 PO; -PHEN-716 PO; -[UNRECOGNIZED DRUG - CODE] PO
[2025-07-08 14:43] LABS: MEAN PLATELET VOLUME 7.2 FL (7.4-10.4); RED CELL DISTRIBUTION WIDTH 13.6 % (11.5-14.5)
[2025-07-08] MEDS: ondansetron/PF 4mg/2ml inj IV ONE (14:52)
[2025-07-08] MEDS: ketorolac trometh 15mg/ml vial 15 MG/ML ML IV ONE (14:52)
[2025-07-08 14:56] LABS: CREATININE 1.44 MG/DL (0.60-1.10); TOTAL CARBON DIOXIDE 24.4 MMOL/L (24-32); eCRCL 55 ML/MIN; eGFR 49 ML/MIN
[2025-07-08 14:58] LABS: LEUKOCYTE ESTERASE ,URINE NEGATIVE (Neg); NITRITES, URINE NEGATIVE (Neg); OCCULT BLOOD,URINE LARGE (Neg)
--- NOTE | 2025-07-08 15:16 | RADIOLOGY REPORT ---
CLINICAL INFORMATION: Nephrolithiasis. TECHNIQUE: Axial CT images of the abdomen and pelvis were obtained without IV contrast. Coronal and sagittal reformatted images were obtained, reviewed, and stored. Evaluation of the parenchymal organs is limited without IV contrast. Evaluation of the bowel and mesentery is limited without oral contrast. All CT scans at this medical facility are performed using dose modulation techniques as appropriate to a performed exam including the following: Automated exposure control was utilized; adjustment of the MA and/or KV according to patient size; and use of iterative reconstruction technique. CTDIvol = 27.5 mGy DLP = 1362.75 mGy-cm COMPARISON: CT CT ABDOMEN PELVIS on DOS: 01/17/24, CT CT CHEST ABDOMEN PELVIS on DOS: 01/15/24, CT CT ABDOMEN PELVIS on DOS: 09/17/23 FINDINGS: Lung bases: Dependent atelectasis in the lung bases. Liver: Grossly unremarkable in its noncontrast enhanced appearance. No abnormal density or focal lesion identified. Biliary: No calcified gallstones or biliary ductal dilatation. Spleen: Unremarkable. Pancreas: Grossly unremarkable in its noncontrast enhanced appearance. Adrenal glands: Unremarkable. No mass. Kidneys: Moderate right hydronephrosis and hydroureter with 3.5 mm calculus in the distal right ureter just proximal to the ureterovesical junction and additional adjacent smaller calculi in the distal right ureter. There are small bilateral nonobstructing renal calculi, with the largest in the inferior pole of the right kidney measuring up to 6 mm in greatest dimension. Aorta/Vascular: Scattered atherosclerotic calcification. No abdominal aortic aneurysm. Lymph nodes: No mass or lymphadenopathy. Bowel/mesentery: No small bowel obstruction. No free air or free fluid. Appendix is not visualized. Moderate stool in the colon. Pelvic organs: Enlarged prostate with mild impression on the bladder base. Bladder: Unremarkable. No mass. Abdominal wall: Very small fat containing umbilical hernia. Bones: Compression fracture of the T12 vertebral body with up to 50% loss of height and areas of sclerosis, likely chronic, although new compared to prior exams. There is a chronic appearing mild compression fracture of the L1 vertebral body, which is stable compared to prior CT exam. Stable appearing Postsurgical changes. There is transitional anatomy with 6 [id number] lumbar type vertebra. IMPRESSION: 1. Moderate right hydronephrosis and hydroureter with small obstructing calculi in the distal right ureter, with the largest measuring up to 3.5 mm. 2. Additional nonobstructing bilateral renal calculi. 3. Chronic appearing compression fracture of the T12 vertebral body with associated sclerosis, new compared to the prior CT. Correlate with clinical findings. 4. Additional nonacute findings as described above.
[2025-07-08 15:26] LABS: UA COLLECTION TYPE CLN CATCH MIDSTREAM
[2025-07-08 15:28] LABS: SQUAMOUS EPITHELIAL CELL,UR FEW /LPF (FEW)
[2025-07-08 15:30] LABS: AMORPHOUS URATES 1+
--- NOTE | 2025-07-08 15:43 | Physician Documentation ---
History of Present Illness ~ Chief Complaint: Flank Pain Stated Complaint: KIDNEY STONE Time Seen by MD: 14:06 Primary Medical Doctor: [facility] Mode of Arrival: POV, Ambulatory HPI 65-year-old male with a longstanding history of renal lithiasis and ureterolithiasis presents to the emergency department with a right flank pain and dysuria that he believes his kidney stone related. No reported fevers nausea or vomiting. He does have urologist. He has had ureter stenting in the past. Medication Reconciliation Allergies: Coded Allergies: No Known Allergies (Unverified , 11/04/17) Scheduled Aspirin (Aspir 81), 1 TAB PO DAILY, (Reported) Fenofibrate,Micronized (Fenofibrate), 1 CAP PO DAILY, (Reported) Ibuprofen* (Motrin*), 400 MG PO Q8H Lisinopril (Lisinopril), 10 MG PO DAILY Omeprazole (Omeprazole), 1 TAB PO DAILY, (Reported) Tamsulosin Hcl* (Flomax*), 0.4 MG PO DAILY Scheduled PRN Hydrocodone Bit/Acetaminophen (Hydrocodon-Acetaminophen 5-325), 1-2 TAB PO Q6H PRN for pain, (Reported) Hydrocodone Bit/Acetaminophen 5/325 MG ([place] 5/325 MG), 1-2 TAB PO Q4-6 hours PRN for pain Trazodone HCl (Trazodone HCl), 1 TAB PO DAILY PRN for pain, (Reported) Past Medical History Past Medical History: Coronary Artery Disease, Kidney Stones Other Past Surgical History: S/p PTCA [address] Berry Alcohol Use: Rarely Drug Use: none Lives with: Spouse Lives In: Home Review of Systems All Other Systems at this time: Reviewed and Negative Constitutional: Reports: see HPI; Denies: chills, fever Genitourinary: Reports: flank pain Physical Exam Vital Signs: RN Vital Signs have been reviewed: Yes, Temperature: 97.8, Source: Temporal, Heart Rate: 77, Respiratory Rate: 18, BP: 148/79, Pulse Oximetry: 96, Weight: 87.200 Oxygen Flow Rate: 0 General Appearance: alert, WD/WN, moderate distress EENT: PERRL/EOMI Respiratory: no respiratory distress Chest: no accessory muscle use Cardiolovascular: normal peripheral pulses Gastrointestinal: tenderness; No: rebound, guarding, rigidity Back: CVA tenderness (R) Extremities: normal range of motion Skin: normal color Neurologic: oriented x4 Psychiatric: normal mood/affect Progress Results/Orders Results/Orders Orders - DAVID MEDINA PAC Ct Abdomen Pelvis (07/08/25 ) Completed Orders - DAVID MEDINA PAC Cbc/Diff (07/08/25 14:22) BMP (07/08/25 14:22) Lipase (07/08/25 14:22) CMP (07/08/25 14:22) Ct Abdomen Pelvis (07/08/25 ) Ketorolac Trometh 15mg/Ml Vial (Toradol (07/08/25 14:25) Ondansetron Inj. (Zofran 4mg/2ml Vial) (07/08/25 14:25) Ua W/Microscopic, Cult If Ind (07/08/25 14:45) Morphine 4mg/Ml Inj. (Morphine Inj.) (07/08/25 15:45) Tamsulosin Capsule (Flomax Capsule) (07/08/25 21:00) Morphine 2mg/Ml Inj. (Morphine Inj.) (07/08/25 15:55) Tamsulosin Capsule (Flomax Capsule) (07/09/25 16:18) Medications Received in ER Medications (Trade) Dose Ordered Sig/Sheila Route PRN Reason Start Time Stop Time Status Last Admin Dose Admin (Toradol injection) 30 mg ONCE ONCE IV 07/08/25 14:25 07/08/25 14:26 DC 07/08/25 14:52 30 MG (Zofran 4mg/2ml vial) 4 mg ONCE ONCE IV 07/08/25 14:25 07/08/25 14:26 DC 07/08/25 14:52 4 MG (morphine inj.) 6 mg ONCE ONCE IV 07/08/25 15:55 07/08/25 15:56 DC 07/08/25 16:09 6 MG (Flomax capsule) 0.4 mg 1618 ONCE PO 07/09/25 16:18 07/08/25 16:32 DC 07/08/25 16:31 0.4 MG Vital Signs 07/08/25 07/08/25 07/08/25 07/08/25 14:20 14:35 14:52 14:56 Temp 97.8 97.8 Pulse 85 77 Resp 16 18 19 18 B/P (MAP) 156/87 148/79 (102) Pulse Ox 96 96 O2 Flow Rate 0 0 07/08/25 07/08/25 16:09 16:24 Temp 97.8 Pulse 68 Resp 20 18 B/P (MAP) 139/73 Pulse Ox 95 Laboratory Tests Test 07/08/25 14:33 07/08/25 14:45 White Blood Count 9.0 Red Blood Count 5.71 Hemoglobin 18.0 *H Hematocrit 51.9 Mean Corpuscular Volume 90.9 Mean Corpuscular Hemoglobin 31.5 H Mean Corpuscular Hemoglobin Concent 34.7 Red Cell Distribution Width 13.6 Platelet Count 152 Mean Platelet Volume 7.2 L Neutrophils (%) (Auto) 74.6 Lymphocytes (%) (Auto) 14.3 L Monocytes (%) (Auto) 7.7 Eosinophils (%) (Auto) 2.6 Basophils (%) (Auto) 0.8 Neutrophils # (Auto) 6.7 Lymphocytes # (Auto) 1.3 Monocytes # (Auto) 0.7 Eosinophils # (Auto) 0.2 Basophils # (Auto) 0.1 CBC Comment Sodium Level 140 Potassium Level 4.0 Chloride Level 109 H Carbon Dioxide Level 24.4 Anion Gap 7 L Blood Urea Nitrogen 25 H Creatinine 1.44 H Estimated GFR/1.73 m2 49 BUN/Creatinine Ratio 17.4 Glucose Level 144 H Calcium Level 9.8 Total Bilirubin 0.4 Aspartate Amino Transf (AST/SGOT) 53 H Alanine Aminotransferase (ALT/SGPT) 87 H Alkaline Phosphatase 127 H Total Protein 8.3 H Albumin 4.3 Globulin 4.0 Albumin/Globulin Ratio 1.1 Lipase 25 Chemistry Comments Urine Specimen Description Cln catch midstream Urine Color Yellow Urine Clarity Cloudy Urine pH 6.5 Urine Specific [place] 1.015 Urine Protein Negative Urine Glucose (UA) Negative Urine Ketones Negative Urine Occult Blood Large H Urine Nitrite Negative Urine Bilirubin Negative Urine Urobilinogen 0.2 Urine Leukocyte Esterase Negative Urine RBC 50-100 Urine WBC 0-4 Urine Squamous Epithelial Cells Few Urine Amorphous Urates 1+ Urine Bacteria None seen Urine Culture Indicated Not ind Volume Urine Centrifuged 10 ml Urine Comment Medical Decision Making Additional information obtaine: old records Findings Examination & history of the consistent likely that of ureter lithiasis requiring a CT imaging laboratory evaluation urinalysis for microscopy. Pain management in the form of Toradol and Zofran with IV fluids while awaiting advanced imaging. Advanced imaging resulted and reviewed by the radiologist shows nonobstructive stone with mild hydro. All labs reassuring. Mild bump in creatinine however not patient's most critical. He will receive IV hydration. Additional pain management forearm a morphine and Flomax. Patient's safely discharged in the emergency department with outpatient management for noninfected and/or obstructing stone. He has reliable urological follow up and primary care follow up. All prescriptions forwarded to pharmacy. Alerted by nursing staff the patient did his pharmacy change. Upon reviewing patient's CURES patient received 112 [place] tablets just six days ago and I will not be providing additional opiate pain medicine yet have provided ibuprofen and Flomax. Urinary Diff Dx:Considerations: Include: Bladder outlet obstruc., Prostatitis, Pyelonephritis, Renal failure, Urolithiasis, Urinary Obstruction, Urethritis, Urinary retention, UTI Genital Diff Dx:Considerations: Include: Torsion-epididymis, Torsion- appendiceal, Urinary retention, Urethritis, UTI Departure Disposition: HOME / SELF CARE / HOMELESS Impression: Primary Impression: Calculus of kidney Additional Impression: Ureteral stone with hydronephrosis Condition: Improved Discharge Instructions: Kidney Stones Additional Instructions: You were noted to have nonobstructive kidney stones along with the ureter stone in the emergency department. You received pain management in the emergency department. I have forwarded prescriptions to your pharmacy. Please make follow up with the urologist for re-evaluation. Return to the emergency department if symptoms worsen. Thank you for visiting [facility] Referrals: NO PRIMARY CARE PROVIDER (PCP) Prescriptions Ibuprofen* (Motrin*) 400 Mg Tablet 400 MG PO Q8H, #20 TAB Prov: DAVID MEDINA 07/08/25 Tamsulosin Hcl* (Flomax*) 0.4 Mg Cap.sr.24h 0.4 MG PO DAILY, #10 CAP Prov: DAVID MEDINA 07/08/25 Education Educated: Patient Educated regarding: diagnosis, treatment, prognosis, need for follow up Signature Scribe Signature: . Attestation: DAVID BEJARANO Jul 08, 2025 15:43
[2025-07-08] MEDS ORDERED: IBUP-1984 PO (15:44)
[2025-07-08] MEDS ORDERED: HYDR-3965 PO ×2 (15:44→18:25)
[2025-07-08] MEDS ORDERED: TAMS-55 PO (15:44)
[2025-07-08] MEDS: morphine 4 MG/ML inj SYRINge IV ONE (16:09)
[2025-07-08 16:24] VITALS: BP 139/73; PULSE 68; RESP 18; TEMP 97.8; O2SAT 95
== END 2025-07-08 16:32 | disposition home or self-care (01) ==
LOC: ER 13:33
DX: N13.2 Hydronephrosis with renal and ureteral calculous obstruction (principal); I25.10 Atherosclerotic heart disease of native coronary artery without angina pectoris; Z98.61 Coronary angioplasty status; Z79.82 Long term (current) use of aspirin
CPT/HCPCS: 36415; 74176; 80053; 81001; 83690; 85025; 96374; 96375; 99285; J1885; J2270; J2405